=== PATIENT | male | born 2000 | race Caucasian/White ===

== ENCOUNTER 2019-08-19 21:12 | Emergency (ER) | payer OTHER ==
[~2019-08-19] VITALS: Ht 188 cm; Wt 90.7 kg
[2019-08-19] MEDS ORDERED: HYDROCODONE/APAP 10MG-325MG TAB PO ONE (21:30)
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
--- NOTE | 2019-08-19 23:10 | Diagnostic Imaging Report ---
X-ray left clavicle 2 views X-ray left shoulder 3 views HISTORY: Pain. COMPARISON: None available. FINDINGS: Bones: Acute displaced angulated overriding comminuted left midclavicular fracture fracture. Joints: The joint spaces are well-maintained. Soft tissues: The soft tissues appear unremarkable. IMPRESSION: Acute displaced angulated overriding comminuted left midclavicular fracture . Signed by: Sarmad Bliss DO on 08/19/2019 11:07 PM
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
--- NOTE | 2019-08-19 23:17 | Diagnostic Imaging Report ---
X-ray right thumb 3 views HISTORY: Pain. COMPARISON: None available. FINDINGS: Bones: Questionable focal articular surface depression at the first metacarpal base. Recommend indicated right hand radiograph. Joints: The joint spaces are well-maintained. Soft tissues: The soft tissues appear unremarkable. IMPRESSION: Questionable focal articular surface depression at the first metacarpal base with subtle associated cortical contour deformity, could be posttraumatic. Recommend dedicated formal routine right hand radiograph. Signed by: Sarmad Bliss DO on 08/19/2019 11:13 PM
--- NOTE | 2019-08-20 00:02 | Diagnostic Imaging Report ---
X-ray right hand 3 views HISTORY: Pain. COMPARISON: None available. FINDINGS: Bones: Subtle chronic appearing deformity at the first metacarpal base. Osseous alignment is within normal limits. Joints: The joint spaces are well-maintained. Soft tissues: The soft tissues appear unremarkable. IMPRESSION: No acute fracture. Subtle chronic appearing deformity at the first metacarpal base. Signed by: Sarmad Bliss DO on 08/19/2019 11:59 PM
== END 2019-08-20 00:05 | disposition home or self-care (01) ==
LOC: ER 22:00
DX: S42.002A Fracture of unspecified part of left clavicle, initial encounter for closed fracture (principal); S80.212A Abrasion, left knee, initial encounter; S80.211A Abrasion, right knee, initial encounter; M79.644 Pain in right finger(s); V86.56XA Driver of dirt bike or motor/cross bike injured in nontraffic accident, initial encounter; Y92.89 Other specified places as the place of occurrence of the external cause
CPT/HCPCS: 71045; 99283

== ENCOUNTER 2021-08-16 14:33 | Emergency (ER) | payer OTHER ==
[~2021-08-16] VITALS: Ht 185.4 cm; Wt 90.7 kg
[2021-08-16] MEDS ORDERED: LORAZEPAM 0.5 MG TAB PO ONE (15:00)
[2021-08-16 15:10] LABS: BASOPHILS % 0.7 % (0.0-1.0); EOSINOPHILS # (AUTO) 0.1 (0.0-0.4); EOSINOPHILS % 1.1 % (0.0-6.0); HEMATOCRIT 45.5 % (38.2-49.6); HEMOGLOBIN 15.4 g/dL (14.0-18.0); LYMPHOCYTES # (AUTO) 1.4 (1.0-3.2); LYMPHOCYTES % 25.2 % (18.0-39.1); MEAN CORPUSCULAR HEMOGLOBIN 30.3 pg (28-32); MEAN CORPUSCULAR HGB CONC 33.8 g/dL (31-35); MEAN CORPUSCULAR VOLUME 89.4 fL (81-99); MONOCYTES # (AUTO) 0.3 (0.2-0.8); MONOCYTES % 5.9 % (4.4-11.3); NEUTROPHILS # (AUTO) 3.7 (2.1-6.9); NEUTROPHILS % 66.9 % (38.7-80.0); PLATELET COUNT 270 x10e3/uL (140-360); RED BLOOD COUNT 5.09 x10e6/uL (4.3-5.7)
[2021-08-16 15:53] LABS: ALBUMIN 4.5 g/dL (3.5-5.0); ALBUMIN/GLOBULIN RATIO 1.2 (0.8-2.0); ANION GAP 15.2 mmol/L (8-16); CALCIUM 10.1 mg/dL (8.4-10.2); CREATININE, SERUM 0.83 mg/dL (0.72-1.25); POTASSIUM 4.2 mmol/L (3.5-5.1)
[2021-08-16 16:51] LABS: AMPHETAMINES SCREEN,URINE NEGATIVE (NEGATIVE); BENZODIAZEPINES SCREEN,URINE POSITIVE (NEGATIVE); PHENCYCLIDINE SCREEN,URINE NEGATIVE (NEGATIVE)
[2021-08-16] MEDS ORDERED: SODIUM CHLORIDE 0.9% 1000ML 1,000 ML IV STA (17:34)
[2021-08-16] MEDS ORDERED: SODIUM CHLORIDE 0.9% 1000ML 1,000 ML ONE (17:42)
[2021-08-16] MEDS ORDERED: ASPIRIN 81 MG CHEW TAB PO ONE (18:15)
[2021-08-16] MEDS ORDERED: IOPAMIDOL 370 MG/ML 100 ML INFUS..BTL INJ ONE (18:23)
[2021-08-16 18:48] LABS: CREATINE KINASE 271 IU/L (30-200)
[2021-08-16 20:07] VITALS: BP 129/84
== END 2021-08-16 19:54 | disposition home or self-care (01) ==
LOC: ER 17:57
DX: R00.0 Tachycardia, unspecified (principal); R07.89 Other chest pain; F90.9 Attention-deficit hyperactivity disorder, unspecified type; Z72.0 Tobacco use
CPT/HCPCS: 36415; 71045; 71260; 80053; 80307; 82550; 82553; 84443; 84484; 85025; 85379; 93005; 99284; J7030; Q9967